=== PATIENT | female | born 1940 | race Hispanic/Latino ===

== ENCOUNTER 2021-03-25 20:05 | Inpatient (IN) | payer MEDICARE, OTHER ==
[~2021-03-25] VITALS: Ht 154.9 cm; Wt 69.9 kg
[2021-03-25 21:12] LABS: BASOPHILS % 0.9 % (0.0-1.0); EOSINOPHILS # (AUTO) 0.3 (0.0-0.4); EOSINOPHILS % 7.7 % (0.0-6.0); LYMPHOCYTES # (AUTO) 0.7 (1.0-3.2); LYMPHOCYTES % 16.1 % (18.0-39.1); MEAN CORPUSCULAR HEMOGLOBIN 31.4 pg (28-32); MEAN CORPUSCULAR HGB CONC 31.6 g/dL (31-35); MEAN CORPUSCULAR VOLUME 99.5 fL (81-99); MONOCYTES # (AUTO) 0.3 (0.2-0.8); NEUTROPHILS # (AUTO) 2.9 (2.1-6.9); NEUTROPHILS % 67.8 % (38.7-80.0); PLATELET COUNT 112 x10e3/uL (140-360); RED CELL DISTRIBUTION WIDTH 17.2 % (11.7-14.4)
[2021-03-25 21:14] LABS: HEMATOCRIT 20.9 % (34.2-44.1); HEMOGLOBIN 6.6 g/dL (12.0-16.0)
[2021-03-25 21:15] LABS: INR 1.12; PARTIAL THROMBOPLASTIN TIME 25.8 seconds (23.8-35.5); PROTHROMBIN TIME 15.3 seconds (11.9-14.5)
[2021-03-25 21:24] LABS: ALBUMIN 2.4 g/dL (3.5-5.0); ALBUMIN/GLOBULIN RATIO 0.5 (0.8-2.0); ANION GAP 13.5 mmol/L (8-16); CALCIUM 7.6 mg/dL (8.4-10.2); CREATININE, SERUM 2.08 mg/dL (0.57-1.11); POTASSIUM 4.5 mmol/L (3.5-5.1)
[2021-03-25] MEDS ORDERED: SODIUM CHLORIDE 0.9% 250ML 250 ML IV ONE (21:45)
[2021-03-25 22:14] LABS: CLARITY,URINE CLOUDY (CLEAR); COLOR,URINE YELLOW (YELLOW); KETONES,URINE NEGATIVE (NEGATIVE); LEUKOCYTE ESTERASE ,URINE LARGE (NEGATIVE); NITRITE,URINE NEGATIVE (NEGATIVE); PROTEIN,URINE DIPSTICK >=300 (NEGATIVE); URINE UROBILINOGEN 0.2 mg/dL (0.2 - 1)
[2021-03-25] MEDS ORDERED: SODIUM CHLORIDE 0.9% 1000ML 1,000 ML IV SCH (22:15)
[2021-03-25 22:19] LABS: BACTERIA,URINE MODERATE /HPF; EPITHELIAL CELLS,URINE FEW /LPF; WBC,URINE (MAN) >50 /HPF (0-5)
[2021-03-26] MEDS ORDERED: FUROSEMIDE INJ 10 MG/ML 2 ML VIAL IV ONE ×2 (02:15→05:00)
[2021-03-26] MEDS ORDERED: SODIUM CHLORIDE 0.9% 250ML 250 ML ONE (02:29)
[2021-03-26 03:02] LABS: % IRON SATURATION 17 % (15-50); IRON 41 ug/dL (50-170); TOTAL IRON BINDING CAPACITY 242 ug/dL (261-478); TRANSFERRIN 173 mg/dL (180-382)
[2021-03-26] MEDS ORDERED: SODIUM CHLORIDE 0.9% 1000ML 1,000 ML IV SCH (05:15)
[2021-03-26 07:44] LABS: BASOPHILS % 0.6 % (0.0-1.0); EOSINOPHILS # (AUTO) 0.4 (0.0-0.4); EOSINOPHILS % 7.5 % (0.0-6.0); HEMATOCRIT 29.3 % (34.2-44.1); HEMOGLOBIN 9.4 g/dL (12.0-16.0); LYMPHOCYTES # (AUTO) 0.6 (1.0-3.2); LYMPHOCYTES % 11.4 % (18.0-39.1); MEAN CORPUSCULAR HEMOGLOBIN 29.5 pg (28-32); MEAN CORPUSCULAR HGB CONC 32.1 g/dL (31-35); MEAN CORPUSCULAR VOLUME 91.8 fL (81-99); MONOCYTES # (AUTO) 0.4 (0.2-0.8); MONOCYTES % 6.9 % (4.4-11.3); NEUTROPHILS # (AUTO) 3.7 (2.1-6.9); PLATELET COUNT 93 x10e3/uL (140-360); RED BLOOD COUNT 3.19 x10e6/uL (3.6-5.1); RED CELL DISTRIBUTION WIDTH 19.5 % (11.7-14.4)
[2021-03-26 08:05] LABS: ANION GAP 11.5 mmol/L (8-16); CALCIUM 7.5 mg/dL (8.4-10.2); CREATININE, SERUM 1.99 mg/dL (0.57-1.11); POTASSIUM 4.5 mmol/L (3.5-5.1)
[2021-03-26] MEDS ORDERED: ALBUTEROL/IPRATROPIUM 3 ML NEB NEB PRN (09:00)
[2021-03-26] MEDS ORDERED: NIFEDIPINE CR 30 MG TAB PO ONE (09:00)
[2021-03-26] MEDS: LACTULOSE SYRUP 20 GM/30 ML UDC PO SCH ×2 (09:59→17:16)
[2021-03-26] MEDS: PIPERACILLIN/TAZOBACTAM 2.25 GM in SODIUM CHLORIDE 0.9% 50ML 50 ML IV SCH ×2 (10:00→17:16)
[2021-03-26 11:00] VITALS: BP 168/58
[2021-03-26] MEDS ORDERED: HYDRALAZINE HCL50 MG PO (11:35)
[2021-03-26] MEDS ORDERED: MIRTAZAPINE7.5 MG PO (11:35)
[2021-03-26] MEDS ORDERED: MULTIVITAMINS1 EAC6 PO (11:35)
[2021-03-26] MEDS ORDERED: ULTRAM50 MG PO (11:35)
[2021-03-26] MEDS ORDERED: SODIUM BICARBO650 MG PO (11:35)
[2021-03-26] MEDS ORDERED: ENULOSE10 GM/15 M PO (11:35)
[2021-03-26] MEDS ORDERED: NEXIUM40 MG PO (11:35)
[2021-03-26] MEDS ORDERED: NIFEDIPINE ER30 M1 PO (11:35)
[2021-03-26] MEDS ORDERED: LEVOTHYROXINE100 MC1 IV (11:35)
[2021-03-26] MEDS ORDERED: TYLENOL325 MG PO (11:35)
[2021-03-26 11:51] VITALS: BP 168/58
[2021-03-26] MEDS ORDERED: PEG (High)/E-LYTE SOLN 4,000 ML BTL PO ONE (13:00)
[2021-03-26 16:12] VITALS: BP 164/54
[2021-03-26] MEDS ORDERED: SODIUM CHLORIDE 0.9% 100 ML ONE (17:15)
[2021-03-26 20:00] VITALS: BP 159/56
[2021-03-26 20:50] VITALS: BP 159/56
[2021-03-26 21:10] VITALS: BP 159/56
[2021-03-27] VITALS (8 sets, daily range): BP systolic 131–159; BP diastolic 39–55
[2021-03-27] MEDS: PIPERACILLIN/TAZOBACTAM 2.25 GM in SODIUM CHLORIDE 0.9% 50ML 50 ML IV SCH ×3 (01:29→15:39)
[2021-03-27] MEDS ORDERED: BISACODYL 5 MG TAB EC PO ONE ×2 (03:30→04:30)
[2021-03-27 05:02] LABS: BASOPHILS % 0.9 % (0.0-1.0); EOSINOPHILS # (AUTO) 0.4 (0.0-0.4); EOSINOPHILS % 9.5 % (0.0-6.0); HEMATOCRIT 26.1 % (34.2-44.1); HEMOGLOBIN 8.5 g/dL (12.0-16.0); LYMPHOCYTES # (AUTO) 0.6 (1.0-3.2); LYMPHOCYTES % 13.1 % (18.0-39.1); MEAN CORPUSCULAR HEMOGLOBIN 29.8 pg (28-32); MEAN CORPUSCULAR HGB CONC 32.6 g/dL (31-35); MEAN CORPUSCULAR VOLUME 91.6 fL (81-99); MONOCYTES # (AUTO) 0.4 (0.2-0.8); MONOCYTES % 8.8 % (4.4-11.3); NEUTROPHILS # (AUTO) 3.1 (2.1-6.9); NEUTROPHILS % 67.5 % (38.7-80.0); PLATELET COUNT 102 x10e3/uL (140-360); RED BLOOD COUNT 2.85 x10e6/uL (3.6-5.1)
[2021-03-27 05:23] LABS: ANION GAP 15.3 mmol/L (8-16); CALCIUM 7.6 mg/dL (8.4-10.2); CREATININE, SERUM 2.09 mg/dL (0.57-1.11); POTASSIUM 4.3 mmol/L (3.5-5.1)
[2021-03-27] MEDS: NIFEDIPINE CR 30 MG TAB PO SCH (06:29)
[2021-03-27] MEDS: LACTULOSE SYRUP 20 GM/30 ML UDC PO SCH ×2 (09:00→15:38)
[2021-03-27] MEDS: IRON SUCROSE 100 MG in SODIUM CHLORIDE 0.9% 100 ML 100 ML IV SCH (09:20)
[2021-03-27] MEDS: CYANOCOBALAMIN INJ 1,000 MCG/ML VIAL IM SCH (09:44)
[2021-03-27] MEDS ORDERED: GLUCAGON FOR INJ 1 MG VIAL ONE (13:33)
[2021-03-27] MEDS ORDERED: PROPOFOL IV EMULSION 10 MG/ML 20 ML VIAL ONE (13:33)
[2021-03-27] MEDS ORDERED: LIDOCAINE HCL 2% LOCAL INJ 5 ML SDV VIAL INJ ONE (13:33)
[2021-03-28] VITALS (8 sets, daily range): BP systolic 146–184; BP diastolic 39–57
[2021-03-28] MEDS: PIPERACILLIN/TAZOBACTAM 2.25 GM in SODIUM CHLORIDE 0.9% 50ML 50 ML IV SCH ×3 (00:45→18:00)
[2021-03-28] MEDS: NIFEDIPINE CR 30 MG TAB PO SCH (06:04)
[2021-03-28] MEDS: LACTULOSE SYRUP 20 GM/30 ML UDC PO SCH ×2 (09:45→18:00)
[2021-03-28] MEDS: CYANOCOBALAMIN INJ 1,000 MCG/ML VIAL IM SCH (09:45)
[2021-03-28] MEDS: IRON SUCROSE 100 MG in SODIUM CHLORIDE 0.9% 100 ML 100 ML IV SCH (14:15)
[2021-03-28] MEDS ORDERED: NIFEDIPINE CR 30 MG TAB PO ONE (20:45)
[2021-03-29] VITALS (8 sets, daily range): BP systolic 128–185; BP diastolic 44–59
[2021-03-29] MEDS ORDERED: HYDRALAZINE HCL 25 MG TAB PO ONE (00:30)
[2021-03-29] MEDS: PIPERACILLIN/TAZOBACTAM 2.25 GM in SODIUM CHLORIDE 0.9% 50ML 50 ML IV SCH ×3 (01:00→16:25)
[2021-03-29] MEDS: NIFEDIPINE CR 30 MG TAB PO SCH (05:45)
[2021-03-29] MEDS ORDERED: SYNTHROID100 MCG PO (06:33)
[2021-03-29] MEDS: IRON SUCROSE 100 MG in SODIUM CHLORIDE 0.9% 100 ML 100 ML IV SCH (09:00)
[2021-03-29] MEDS ORDERED: NIFEDIPINE CR 30 MG TAB PO SCH (09:00)
[2021-03-29] MEDS: LACTULOSE SYRUP 20 GM/30 ML UDC PO SCH ×2 (09:54→16:25)
[2021-03-29] MEDS: CYANOCOBALAMIN INJ 1,000 MCG/ML VIAL IM SCH (09:54)
[2021-03-30] VITALS (8 sets, daily range): BP systolic 136–190; BP diastolic 46–57
[2021-03-30] MEDS: PIPERACILLIN/TAZOBACTAM 2.25 GM in SODIUM CHLORIDE 0.9% 50ML 50 ML IV SCH ×3 (00:30→18:11)
[2021-03-30] MEDS: NIFEDIPINE CR 30 MG TAB PO SCH (05:25)
[2021-03-30] MEDS ORDERED: SODIUM CHLORIDE 0.9% 250ML 250 ML ONE (09:00)
[2021-03-30] MEDS ORDERED: LIDOCAINE HCL 1% LOCAL INJ 20 ML VIAL ONE (09:00)
[2021-03-30] MEDS ORDERED: IOPAMIDOL 300MG/ML 100 ML INFUS..BTL IV ONE (09:18)
[2021-03-30] MEDS: IRON SUCROSE 100 MG in SODIUM CHLORIDE 0.9% 100 ML 100 ML IV SCH (11:02)
[2021-03-30] MEDS: CYANOCOBALAMIN INJ 1,000 MCG/ML VIAL IM SCH (11:02)
[2021-03-30] MEDS: LACTULOSE SYRUP 20 GM/30 ML UDC PO SCH ×2 (11:03→18:11)
[2021-03-30 11:19] LABS: BASOPHILS % 0.7 % (0.0-1.0); EOSINOPHILS # (AUTO) 0.5 (0.0-0.4); EOSINOPHILS % 8.8 % (0.0-6.0); HEMATOCRIT 29.5 % (34.2-44.1); HEMOGLOBIN 9.7 g/dL (12.0-16.0); LYMPHOCYTES # (AUTO) 0.7 (1.0-3.2); LYMPHOCYTES % 11.9 % (18.0-39.1); MEAN CORPUSCULAR HEMOGLOBIN 30.2 pg (28-32); MEAN CORPUSCULAR HGB CONC 32.9 g/dL (31-35); MEAN CORPUSCULAR VOLUME 91.9 fL (81-99); MONOCYTES # (AUTO) 0.3 (0.2-0.8); MONOCYTES % 5.8 % (4.4-11.3); NEUTROPHILS % 71.9 % (38.7-80.0); PLATELET COUNT 92 x10e3/uL (140-360); RED BLOOD COUNT 3.21 x10e6/uL (3.6-5.1)
[2021-03-30] MEDS: HYDRALAZINE HCL 25 MG TAB PO SCH (21:38)
[2021-03-31] VITALS (9 sets, daily range): BP systolic 125–173; BP diastolic 43–53
[2021-03-31] MEDS: PIPERACILLIN/TAZOBACTAM 2.25 GM in SODIUM CHLORIDE 0.9% 50ML 50 ML IV SCH ×3 (01:00→17:00)
[2021-03-31] MEDS: NIFEDIPINE CR 30 MG TAB PO SCH (06:03)
[2021-03-31] MEDS: HYDRALAZINE HCL 25 MG TAB PO SCH ×3 (06:03→22:00)
[2021-03-31] MEDS: LEVOTHYROXINE SODIUM 100 MCG TAB PO SCH (06:03)
[2021-03-31] MEDS: IRON SUCROSE 100 MG in SODIUM CHLORIDE 0.9% 100 ML 100 ML IV SCH (11:37)
[2021-03-31] MEDS: LACTULOSE SYRUP 20 GM/30 ML UDC PO SCH ×2 (11:38→17:00)
[2021-03-31] MEDS: HYDROCODONE/APAP 10MG-325MG TAB PO PRN (21:30)
[2021-04-01] VITALS (8 sets, daily range): BP systolic 103–144; BP diastolic 41–66
[2021-04-01] MEDS: PIPERACILLIN/TAZOBACTAM 2.25 GM in SODIUM CHLORIDE 0.9% 50ML 50 ML IV SCH ×2 (00:58→09:10)
[2021-04-01] MEDS: HYDRALAZINE HCL 25 MG TAB PO SCH ×3 (06:39→22:00)
[2021-04-01] MEDS: LEVOTHYROXINE SODIUM 100 MCG TAB PO SCH (06:40)
[2021-04-01] MEDS: NIFEDIPINE CR 30 MG TAB PO SCH (06:40)
[2021-04-01] MEDS: LACTULOSE SYRUP 20 GM/30 ML UDC PO SCH ×2 (09:10→17:12)
[2021-04-01] MEDS: PANTOPRAZOLE SOD 40 MG TABEC PO SCH (09:10)
[2021-04-01] MEDS: Vancomycin IV 1 GM in SODIUM CHLORIDE 0.9% 250ML 250 ML IV SCH (10:51)
[2021-04-01 12:19] LABS: BASOPHILS # (AUTO) 0.1 (0.0-0.1); BASOPHILS % 0.5 % (0.0-1.0); EOSINOPHILS # (AUTO) 0.4 (0.0-0.4); EOSINOPHILS % 3.9 % (0.0-6.0); HEMATOCRIT 30.3 % (34.2-44.1); HEMOGLOBIN 9.6 g/dL (12.0-16.0); LYMPHOCYTES # (AUTO) 0.9 (1.0-3.2); LYMPHOCYTES % 9.8 % (18.0-39.1); MEAN CORPUSCULAR HEMOGLOBIN 30.1 pg (28-32); MEAN CORPUSCULAR HGB CONC 31.7 g/dL (31-35); MONOCYTES # (AUTO) 0.5 (0.2-0.8); MONOCYTES % 5.3 % (4.4-11.3); NEUTROPHILS # (AUTO) 7.3 (2.1-6.9); NEUTROPHILS % 79.7 % (38.7-80.0); PLATELET COUNT 105 x10e3/uL (140-360); RED BLOOD COUNT 3.19 x10e6/uL (3.6-5.1); RED CELL DISTRIBUTION WIDTH 19.4 % (11.7-14.4)
[2021-04-01] MEDS: HEPARIN SOD (PORCINE) 5,000 UNIT/ML VIAL SC SCH (21:09)
[2021-04-01] MEDS: HYDROCODONE/APAP 10MG-325MG TAB PO PRN (21:35)
[2021-04-02] VITALS (7 sets, daily range): BP systolic 142–188; BP diastolic 45–70
[2021-04-02] MEDS: HYDRALAZINE HCL 25 MG TAB PO SCH ×3 (06:00→21:57)
[2021-04-02] MEDS: NIFEDIPINE CR 30 MG TAB PO SCH (06:00)
[2021-04-02] MEDS: LEVOTHYROXINE SODIUM 100 MCG TAB PO SCH (06:02)
[2021-04-02] MEDS: PANTOPRAZOLE SOD 40 MG TABEC PO SCH (09:32)
[2021-04-02] MEDS: HEPARIN SOD (PORCINE) 5,000 UNIT/ML VIAL SC SCH ×2 (09:39→21:03)
[2021-04-02] MEDS: LACTULOSE SYRUP 20 GM/30 ML UDC PO SCH ×2 (09:39→16:27)
[2021-04-02] MEDS: Vancomycin IV 1 GM in SODIUM CHLORIDE 0.9% 250ML 250 ML IV SCH (09:44)
[2021-04-03 01:13] VITALS: BP 168/45
[2021-04-03] MEDS: HYDROCODONE/APAP 10MG-325MG TAB PO PRN (03:47)
[2021-04-03 04:45] VITALS: BP 154/44
[2021-04-03] MEDS: HYDRALAZINE HCL 25 MG TAB PO SCH ×3 (05:53→22:00)
[2021-04-03] MEDS: LEVOTHYROXINE SODIUM 100 MCG TAB PO SCH (05:53)
[2021-04-03] MEDS: NIFEDIPINE CR 30 MG TAB PO SCH (05:53)
[2021-04-03 06:32] LABS: ALBUMIN 2.2 g/dL (3.5-5.0); ALBUMIN/GLOBULIN RATIO 0.5 (0.8-2.0); ANION GAP 14.4 mmol/L (8-16); CALCIUM 7.2 mg/dL (8.4-10.2); CREATININE, SERUM 2.58 mg/dL (0.57-1.11); POTASSIUM 4.4 mmol/L (3.5-5.1)
[2021-04-03 08:29] VITALS: BP 164/49
[2021-04-03] MEDS: HEPARIN SOD (PORCINE) 5,000 UNIT/ML VIAL SC SCH (09:00)
[2021-04-03] MEDS ORDERED: LACTULOSE SYRUP 20 GM/30 ML UDC PO SCH (09:00)
[2021-04-03] MEDS: PANTOPRAZOLE SOD 40 MG TABEC PO SCH (09:00)
[2021-04-03] MEDS: RIFAXIMIN 550 MG TABLET PO SCH ×2 (09:01→17:00)
[2021-04-03] MEDS: Vancomycin IV 1 GM in SODIUM CHLORIDE 0.9% 250ML 250 ML IV SCH (10:00)
[2021-04-03] MEDS ORDERED: MORPHINE SULFATE 15MG TAB CR PO PRN (10:30)
[2021-04-03] MEDS ORDERED: MORPHINE SULFATE ORAL SOLN 10 MG/5 ML UDC PO PRN (11:00)
[2021-04-03] MEDS: MORPHINE SULFATE 15MG TAB CR PO SCH ×2 (11:15→21:00)
[2021-04-03] MEDS ORDERED: ONDANSETRON HCL INJ 2MG/ML 2ML 2 MG/ML VIAL IV PRN (16:45)
[2021-04-03] MEDS: DOXYCYCLINE HYCLATE TABLET 100 MG TAB PO SCH (17:00)
[2021-04-03 20:00] VITALS: BP 141/39
[2021-04-03 20:45] VITALS: BP 95/31
[2021-04-03 21:00] VITALS: BP 141/39
[2021-04-04] VITALS (8 sets, daily range): BP systolic 95–144; BP diastolic 31–40
[2021-04-04] MEDS: HEPARIN SOD (PORCINE) 5,000 UNIT/ML VIAL SC SCH (00:24)
[2021-04-04] MEDS: LEVOTHYROXINE SODIUM 100 MCG TAB PO SCH (06:00)
[2021-04-04] MEDS: NIFEDIPINE CR 30 MG TAB PO SCH (06:00)
[2021-04-04] MEDS: HYDRALAZINE HCL 25 MG TAB PO SCH (06:00)
[2021-04-04 07:05] LABS: ANION GAP 13.6 mmol/L (8-16); CALCIUM 7.8 mg/dL (8.4-10.2); CREATININE, SERUM 3.31 mg/dL (0.57-1.11)
[2021-04-04 07:22] LABS: POTASSIUM 5.6 mmol/L (3.5-5.1)
[2021-04-04] MEDS: PANTOPRAZOLE SOD 40 MG TABEC PO SCH (07:30)
[2021-04-04 07:40] LABS: BASOPHILS % 0.1 % (0.0-1.0); HEMATOCRIT 29.7 % (34.2-44.1); HEMOGLOBIN 9.1 g/dL (12.0-16.0); LYMPHOCYTES # (AUTO) 0.9 (1.0-3.2); LYMPHOCYTES % 6.8 % (18.0-39.1); MEAN CORPUSCULAR HEMOGLOBIN 30.5 pg (28-32); MEAN CORPUSCULAR HGB CONC 30.6 g/dL (31-35); MEAN CORPUSCULAR VOLUME 99.7 fL (81-99); NEUTROPHILS # (AUTO) 11.6 (2.1-6.9); NEUTROPHILS % 85.3 % (38.7-80.0); PLATELET COUNT 174 x10e3/uL (140-360); RED BLOOD COUNT 2.98 x10e6/uL (3.6-5.1); RED CELL DISTRIBUTION WIDTH 19.8 % (11.7-14.4)
[2021-04-04] MEDS: DOXYCYCLINE HYCLATE TABLET 100 MG TAB PO SCH (09:00)
[2021-04-04] MEDS ORDERED: SCOPOLAMINE 1.5 MG PATCH TOP SCH (09:45)
[2021-04-04] MEDS ORDERED: Morphine 2mg Syringe 2 MG/ML SYR IV PRN (09:45)
[2021-04-04] MEDS ORDERED: LORAZEPAM INJ 2 MG/ML VIAL IV PRN (09:45)
[2021-04-04] MEDS ORDERED: FENTANYL 25 MCG/HR PATCH TOP SCH (09:45)
[2021-04-05] VITALS: BP 109/41
[2021-04-05 04:00] VITALS: BP 117/33
[2021-04-05 05:48] LABS: BASOPHILS % 0.1 % (0.0-1.0); HEMATOCRIT 29.3 % (34.2-44.1); HEMOGLOBIN 8.9 g/dL (12.0-16.0); LYMPHOCYTES # (AUTO) 0.6 (1.0-3.2); LYMPHOCYTES % 4.8 % (18.0-39.1); MEAN CORPUSCULAR HEMOGLOBIN 30.2 pg (28-32); MEAN CORPUSCULAR HGB CONC 30.4 g/dL (31-35); MEAN CORPUSCULAR VOLUME 99.3 fL (81-99); MONOCYTES # (AUTO) 0.7 (0.2-0.8); MONOCYTES % 5.7 % (4.4-11.3); NEUTROPHILS # (AUTO) 10.4 (2.1-6.9); NEUTROPHILS % 89.1 % (38.7-80.0); PLATELET COUNT 159 x10e3/uL (140-360); RED BLOOD COUNT 2.95 x10e6/uL (3.6-5.1); RED CELL DISTRIBUTION WIDTH 19.9 % (11.7-14.4)
[2021-04-05 07:58] VITALS: BP 116/31
[2021-04-05 17:51] VITALS: BP 116/31
[2021-04-06] VITALS: BP 161/80
== END 2021-04-05 20:00 | disposition hospice, home (50) | DRG 378 ==
LOC: ER 20:43 → ERHOLD 22:08 → IMCU 03-26 11:00 → MED/SURG2 03-27 18:29
PROVIDERS: ADMIT Internal Medicine; ATTEND Internal Medicine
PROC: 30233N0 Transfusion of Autologous Red Blood Cells into Peripheral Vein, Percutaneous Approach (ICD-10-PCS; 2021-03-25)
PROC: 0DBP8ZX Excision of Rectum, Via Natural or Artificial Opening Endoscopic, Diagnostic (ICD-10-PCS; principal; 2021-03-27 15:30)
PROC: 0T25X0Z Change Drainage Device in Kidney, External Approach (ICD-10-PCS; 2021-03-30)
PROC: 0T25X0Z Change Drainage Device in Kidney, External Approach (ICD-10-PCS; 2021-03-30)
DX: K57.31 Diverticulosis of large intestine without perforation or abscess with bleeding (principal); K62.6 Ulcer of anus and rectum; C64.2 Malignant neoplasm of left kidney, except renal pelvis; N18.4 Chronic kidney disease, stage 4 (severe); N30.40 Irradiation cystitis without hematuria; D62 Acute posthemorrhagic anemia; N13.6 Pyonephrosis; N17.9 Acute kidney failure, unspecified; I82.621 Acute embolism and thrombosis of deep veins of right upper extremity; I12.9 Hypertensive chronic kidney disease with stage 1 through stage 4 chronic kidney disease, or unspecified chronic kidney disease; Z85.42 Personal history of malignant neoplasm of other parts of uterus; Z85.05 Personal history of malignant neoplasm of liver; N99.528 Other complication of incontinent external stoma of urinary tract; T83.032A Leakage of nephrostomy catheter, initial encounter; Y84.2 Radiological procedure and radiotherapy as the cause of abnormal reaction of the patient, or of later complication, without mention of misadventure at the time of the procedure; Y78.1 Therapeutic (nonsurgical) and rehabilitative radiological devices associated with adverse incidents; D50.9 Iron deficiency anemia, unspecified; K74.60 Unspecified cirrhosis of liver; R31.29 Other microscopic hematuria; E66.9 Obesity, unspecified; Z68.29 Body mass index [BMI] 29.0-29.9, adult; K63.89 Other specified diseases of intestine; R41.82 Altered mental status, unspecified; D69.59 Other secondary thrombocytopenia; K59.09 Other constipation; Z20.822 Contact with and (suspected) exposure to COVID-19
CPT/HCPCS: 36415; 45378; 50387; 50431; 71045; 74176; 74181; 74470; 80048; 80053; 80202; 81001; 82105; 82140; 82270; 82378; 82607; 82728; 82746; 82948; 83540; 83880; 84466; 85025; 85045; 85610; 85730; 86301; 86304; 86850; 86900; 86920; 87521; 88305; 93005; 93971; 94799; 99251; 99284; C1769; J1610; J1644; J1756; J1940; J2001; J2060; J2270; J2405; J2543; J3370; J3420; J7030; J7050; P9016; Q9967; U0002